=== PATIENT | female | born 1950 ===

== ENCOUNTER 2020-10-30 19:51 | Outpatient (REF) | payer MEDICARE, MEDICAID, SELFPAY ==
[2020-10-30 19:48] LABS: Abs Immature Grans 0.01 10^3/uL (0.0-0.06); Absolute Basophil Count 0.04 10^3/uL (0.0-0.2); Absolute Eosinophil Count 0.06 10^3/uL (0.0-0.7); Absolute Lymphocyte Count 1.82 10^3/uL (1.2-3.4); Absolute Monocyte Count 0.62 10^3/uL (0.1-0.8); Absolute Neutrophil Count 3.96 10^3/uL (1.2-6.7); Basophils % 0.6; Eosinophils % 0.9; HCT 45.1 % (36.0-46.0); HGB 14.6 g/dL (11.2-15.7); Immature Grans % 0.2; MCH 29.9 pg (27.0-33.0); MCHC 32.4 % (32.0-36.0); MCV 92.2 fL (80-95); MPV 10.2 fL (8.0-11.0); Monocytes % 9.5; Neutrophils % 60.8; Nucleated RBC 0 %; Platelet Count 254 10^3/uL (130-400); RBC 4.89 10^6/uL (3.93-5.22); RDW 13.2 % (11.7-14.6); RDW-SD 44.2 fL; WBC 6.51 10^3/uL (4.4-10.8)
[2020-10-30 20:06] LABS: ALT 20 U/L (14-59); AST 22 U/L (15-37); Alkaline Phosphatase 99 U/L (46-116); Anion Gap 8.6 mmol/L (3-11); BUN 12 mg/dL (7-18); Bilirubin, Total 0.8 mg/dL (0.2-1.0); CO2 30.4 mmol/L (21.0-32.0); CREATININE 0.7 mg/dL (0.55-1.02); Calcium 9.5 mg/dL (8.5-10.1); Chloride 105 mmol/L (98-107); Glucose 88 mg/dL (74-106); Magnesium 2.3 mg/dL (1.8-2.4); Potassium 3.5 mmol/L (3.5-5.1); Sodium 144 mmol/L (136-145); TSH 1.61 uIU/mL (0.36-3.74); Total Protein 6.9 g/dL (6.4-8.2)
== END 2020-10-30 19:52 | disposition home or self-care (01) ==
LOC: NCHCN 19:51
PROVIDERS: PCP Internal Medicine; Visit Provider Registered Nurse
DX: R89.9 Unspecified abnormal finding in specimens from other organs, systems and tissues (principal); Z86.39 Personal history of other endocrine, nutritional and metabolic disease; Z91.81 History of falling; R82.998 Other abnormal findings in urine
CPT/HCPCS: 80053; 83735; 84443; 85025; 87086

== ENCOUNTER 2021-04-17 07:29 | Outpatient (REF) | payer MEDICARE, MEDICAID, SELFPAY ==
[2021-04-16 21:39] LABS: Vitamin B12 354 pg/mL (193-986)
== END 2021-04-17 07:30 | disposition home or self-care (01) ==
LOC: NCHCN 07:29
PROVIDERS: PCP Internal Medicine; Visit Provider Registered Nurse
DX: R41.3 Other amnesia (principal); R41.89 Other symptoms and signs involving cognitive functions and awareness
CPT/HCPCS: 82607

== ENCOUNTER 2022-08-06 18:10 | Outpatient (REF) | payer MEDICARE, MEDICAID, SELFPAY ==
[2022-08-06 21:12] LABS: Abs Immature Grans 0.01 10^3/uL (0.0-0.06); Absolute Basophil Count 0.05 10^3/uL (0.0-0.2); Absolute Eosinophil Count 0.05 10^3/uL (0.0-0.7); Absolute Lymphocyte Count 1.53 10^3/uL (1.2-3.4); Absolute Monocyte Count 0.55 10^3/uL (0.1-0.8); Absolute Neutrophil Count 5.06 10^3/uL (1.2-6.7); Basophils % 0.7; Eosinophils % 0.7; HCT 45.3 % (36.0-46.0); HGB 14.5 g/dL (11.2-15.7); Immature Grans % 0.1; Lymphocytes % 21.1; MCH 29.2 pg (27.0-33.0); MCV 91 fL (80-95); MPV 9.8 fL (8.0-11.0); Monocytes % 7.6; Neutrophils % 69.8; Platelet Count 231 10^3/uL (130-400); RBC 4.96 10^6/uL (3.93-5.22); RDW 12.7 % (11.7-14.6); RDW-SD 42.4 fL; WBC 7.25 10^3/uL (4.4-10.8)
[2022-08-06 21:52] LABS: Vitamin D 25 Total 5.9 ng/mL (30-100)
[2022-08-06 22:01] LABS: ALT 19 U/L (14-59); AST 26 U/L (15-37); Alkaline Phosphatase 92 U/L (46-116); Anion Gap 7.3 mmol/L (3-11); BUN 16 mg/dL (7-18); Bilirubin, Total 0.6 mg/dL (0.2-1.0); CO2 29.7 mmol/L (21.0-32.0); CREATININE 0.7 mg/dL (0.55-1.02); Calcium 9.2 mg/dL (8.5-10.1); Calculated LDL 112 mg/dL (<100); Chloride 104 mmol/L (98-107); Cholesterol 209 mg/dL (<200); Estimated GFR 91.83 (mL/min/1.73m2); Glucose 93 mg/dL (74-106); HDL Cholesterol 89 mg/dL (40-60); Potassium 4.2 mmol/L (3.5-5.1); Sodium 141 mmol/L (136-145); TSH 3.55 uIU/mL (0.36-3.74); Triglyceride 44 mg/dL (<150); Vitamin B12 327 pg/mL (193-986)
== END 2022-08-06 18:11 | disposition home or self-care (01) ==
LOC: NCHCN 18:10
PROVIDERS: PCP Internal Medicine; Visit Provider Registered Nurse
DX: F03.90 Unspecified dementia, unspecified severity, without behavioral disturbance, psychotic disturbance, mood disturbance, and anxiety (principal); E55.9 Vitamin D deficiency, unspecified; E78.89 Other lipoprotein metabolism disorders
CPT/HCPCS: 80053; 80061; 82306; 82607; 84443; 85025